=== PATIENT | male | born 1980 ===

== ENCOUNTER 2021-01-18 13:57 | Emergency (ER) | payer BC ==
[2021-01-18 14:08] VITALS: BP 144/91
--- NOTE | 2021-01-18 16:33 | Emergency Department Report ---
HPI - General Chief Complaint: Psych Time Seen by Provider: 01/18/21 15:24 - HPI HPI: Room 12 The patient is a 40-year-old male present with a chief complaint of suicidal ideation. The patient states he was having his first video conference with a new psychiatrist and states the psychiatrist asked him if he was suicidal. The patient says he replied he was a few days ago but not currently. The patient states the physician called EMS and had police come to his home to transport him to the ED for further evaluation. Patient states he was suicidal days 2 weeks ago but not currently. Patient denies any attempts at harming himself or having a plan. Patient states his symptoms stem from the recent loss of his son ED Past Medical Hx - Past Medical History Previous Medical History?: Yes Hx Psychiatric Treatment: Yes (Schizophrenia) - Surgical History Past Surgical History?: No - Family History Family history: no significant - Social History Smoking Status: Former Smoker (None x40 years) Substance Use Type: None (Denies illicit drug use) - Medications Home Medications: Home Medications Medication Instructions Recorded Confirmed Last Taken Type No Known Home Medications [No 09/25/15 09/25/15 Unknown History Reported Home Medications] ED Review of Systems ROS: Stated complaint: 1013 Other details as noted in HPI Constitutional: no symptoms reported Eyes: denies: eye pain ENT: denies: throat pain Respiratory: no symptoms reported Cardiovascular: denies: chest pain Endocrine: no symptoms reported Gastrointestinal: denies: abdominal pain Genitourinary: denies: dysuria Musculoskeletal: denies: back pain Neurological: denies: headache Psychiatric: suicidal thoughts Physical Exam - Physical Exam Vital Signs: Vital Signs 01/18/21 14:02 Temperature 98 F Pulse Rate 110 H Respiratory 16 Rate Blood Pressure 144/91 [Left] O2 Sat by Pulse 96 Oximetry Physical Exam: GENERAL: The patient is well-developed well-nourished male sitting in chair appearing emotionally distraught. [] HEENT: Normocephalic. Atraumatic. Extraocular motions are intact. Patient has moist mucous membranes. NECK: Supple. Trachea midline CHEST/LUNGS: Clear to auscultation. There is no respiratory distress noted. HEART/CARDIOVASCULAR: Regular. There is no tachycardia. There is no gallop rub or murmur. ABDOMEN: Abdomen is soft, nontender. Patient has normal bowel sounds. There is no abdominal distention. SKIN: There is no rash. There is no edema. There is no diaphoresis. NEURO: The patient is awake, alert, and oriented. The patient is cooperative. The patient has no focal neurologic deficits. The patient has normal speech. GCS 15 MUSCULOSKELETAL: There is no evidence of acute injury. 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 and appreciated ED Medical Decision Making - Lab Data Result diagrams: 01/18/21 16:26 01/18/21 16:26 Laboratory Tests 01/18/21 01/18/21 01/18/21 16:26 16:26 16:26 WBC 10.4 RBC 5.46 H Hgb 15.0 Hct 47.7 H MCV 87 MCH 27 L MCHC 31 L RDW 14.0 Plt Count 206 Lymph % (Auto) 12.3 L [place] % (Auto) 3.1 Eos % (Auto) 0.0 Baso % (Auto) 0.3 Lymph # (Auto) 1.3 [place] # (Auto) 0.3 Eos # (Auto) 0.0 Baso # (Auto) 0.0 Seg Neutrophils % 84.3 H Seg Neutrophils # 8.7 H Sodium 136 L Potassium 4.4 Chloride 100.7 Carbon Dioxide 22 Anion Gap 18 BUN 12 Creatinine 1.0 Estimated GFR > 60 BUN/Creatinine Ratio 12 Glucose 118 H Calcium 9.8 Salicylates < 0.3 L Acetaminophen 01/18/21 16:26 WBC RBC Hgb Hct MCV MCH MCHC RDW Plt Count Lymph % (Auto) [place] % (Auto) Eos % (Auto) Baso % (Auto) Lymph # (Auto) [place] # (Auto) Eos # (Auto) Baso # (Auto) Seg Neutrophils % Seg Neutrophils # Sodium Potassium Chloride Carbon Dioxide Anion Gap BUN Creatinine Estimated GFR BUN/Creatinine Ratio Glucose Calcium Salicylates Acetaminophen 5.0 L - Differential Diagnosis Suicidal ideation Critical care attestation.: If time is entered above; I have spent that time in minutes in the direct care of this critically ill patient, excluding procedure time. ED Disposition Clinical Impression: Grief reaction Disposition: 01 HOME / SELF CARE / HOMELESS Is pt being admited?: No Does the pt Need Aspirin: No Condition: Stable Additional Instructions: Professional and Agency Contacts To help Resolve Crises(25/09) [place] Crisis Line: Suicide Prevention Line: Crisis Text Line: Text START to 729653 Emergency: 911 OUTPATIENT MENT[facility], [address], [place] [id number] [facility] Jagdish Trejo MD: [address] [facility] [address] [place], [place] [id number] [facility]: [address], [place] [id number] [place] [facility] [place] [id number] [phone] [facility]: [address] [facility] [address] [place], [place] [id number] [phone] [facility]: [address] [facility] [address] [facility] [id number] [facility]: [address] [place], [place] Prabhakar Ellis MD: [address] [facility] [id number] [facility]: [address] [place], [place] [id number] [phone] [place] CRISIS AND ACCESS LINE: * Referrals: PRIMARY CAREMD [Primary Care Provider] - 3-5 Days Time of Disposition: 17:26
[2021-01-18 16:38] LABS: Basophils % (Auto) 0.3 % (0.0-1.8); Hematocrit 47.7 % (35.5-45.6); Lymphocytes # (Auto) 1.3 K/mm3 (1.2-5.4); Lymphocytes % (Auto) 12.3 % (13.4-35.0); Mean Corpuscular HGB Conc 31 % (32-34); Mean Corpuscular Volume 87 fl (84-94); Monocytes # (Auto) 0.3 K/mm3 (0.0-0.8); Monocytes % (Auto) 3.1 % (0.0-7.3); Platelet Count 206 K/mm3 (140-440); Red Blood Count 5.46 M/mm3 (3.65-5.03)
[2021-01-18 16:56] LABS: BUN/Creatinine Ratio 12; Blood Urea Nitrogen 12 mg/dL (9-20); Calcium 9.8 mg/dL (8.4-10.2); Hemolysis Index 9
== END 2021-01-18 17:34 | disposition home or self-care (01) ==
LOC: ED 13:57
DX: F43.0 Acute stress reaction (principal); F20.9 Schizophrenia, unspecified; Z87.891 Personal history of nicotine dependence
CPT/HCPCS: 36415; 80048; 80320; 85025; 99282; 99283; G0480